=== PATIENT | male | born 1965 | race Caucasian/White ===

== ENCOUNTER 2016-06-05 13:55 | Outpatient (CLI) | payer BC | END 2016-06-05 14:13 | disposition home or self-care (01) | LOC: SLEEP 13:55 | PROVIDERS: ATTEND Nurse Practitioner Family | DX: G47.10 Hypersomnia, unspecified (principal); G47.50 Parasomnia, unspecified ==

== ENCOUNTER 2018-01-19 05:36 | Outpatient (CLI) | payer BC ==
[~2018-01-19] VITALS: Ht 190.5 cm; Wt 111.1 kg
[2018-01-19] MEDS ORDERED: ALLO300T2 PO (12:36)
[2018-01-19] MEDS ORDERED: BENA1TAB15 PO (12:36)
[2018-01-19] MEDS ORDERED: ATOR40TA70 PO (12:36)
== END 2018-01-19 12:44 | disposition home or self-care (01) ==
LOC: PREOP 05:36
PROVIDERS: ATTEND Internal Medicine
DX: Z01.818 Encounter for other preprocedural examination (principal)

== ENCOUNTER 2018-01-23 06:53 | Day surgery (SDC) | payer BC ==
--- NOTE | 2017-12-31 16:42 | HISTORY AND PHYSICAL ---
DATE OF SERVICE: COLONOSCOPY HISTORY AND PHYSICAL HISTORY OF PRESENT ILLNESS: The patient is a 52-year-old white male who was seen in the office for followup of hypertension, obstructive sleep apnea and acute intermittent gout. Two months earlier, I had seen him for left lower quadrant abdominal pain and elevated white count, suspicious for diverticulitis. He finished a round of oral antibiotic therapy with resolution of abdominal pain and has noted no blood in his stool. He has no previous history of colonoscopy. He reports that he has been feeling well. Energy level has returned to normal. His weight was up 11 pounds over the past 2 months and he has been eating pretty much and there have been no dietary restrictions. He has had no gout flares and has been compliant with CPAP. There is no known family history for colon cancer. PHYSICAL EXAMINATION: GENERAL: Revealed a well-appearing white male in no acute distress. VITAL SIGNS: Blood pressure 128/84, weight 245.6 pounds, actually up 9.6 pounds from 2 months ago. HEENT: Sclerae nonicteric. Oral cavity reveals a Mallampati class 3 oropharyngeal configuration without evidence for exudate or erythema. CHEST: Clear to auscultation. CARDIOVASCULAR: Reveals regular rate and rhythm without murmur, S3 or S4. ABDOMEN: Soft, supple without mass, organomegaly or tenderness. EXTREMITIES: Reveal no cyanosis, clubbing or edema. ASSESSMENT AND PLAN: 1. The patient was set up for screening colonoscopy on 01/23/2018. Prep instructions were given and Suprep kit and questions were answered. 2. Flu shot administered today. 3. Acute intermittent gout. Stable on uric acid lowering therapy in the form of the allopurinol. 4. Hypertension, in good control. We will see him back in 4 months. Job ID: [id number] DocumentID: [id number] Dictated Date: 12/24/2017 16:26:17 Milk Bottler Date: 12/24/2017 17:25:37 Dictated By: JONI GARCIA MD
[~2018-01-23] VITALS: Ht 190.5 cm; Wt 111.1 kg
[~2018-01-23 06:53] MED LIST: ALLO300T2 PO; ATOR40TA70 PO; BENA1TAB15 PO
[2018-01-23] MEDS ORDERED: D5 LR IV SOLUTION 1,000 ML IV ONE (07:21)
[2018-01-23 07:34] VITALS: BP 132/88
[2018-01-23] MEDS ORDERED: D5 LR IV SOLUTION 1,000 ML IV STA (07:37)
[2018-01-23] MEDS ORDERED: LIDOCAINE JELLY 2% 6 ML SYRINGE MM PRN (07:45)
[2018-01-23] MEDS ORDERED: fentaNYL INJECTION 100 MCG/2 ML AMP IVP ONE (07:45)
[2018-01-23] MEDS ORDERED: MIDAZOLAM 2 MG/2 ML (VERSED) VIAL IVP ONE (07:45)
[2018-01-23] MEDS ORDERED: MIDAZOLAM 2 MG/2 ML (VERSED) VIAL ONE ×2 (07:58)
[2018-01-23] MEDS ORDERED: LIDOCAINE JELLY 2% 6 ML SYRINGE ONE (07:58)
[2018-01-23] MEDS ORDERED: fentaNYL INJECTION 100 MCG/2 ML AMP ONE (07:58)
--- NOTE | 2018-01-23 07:59 | Pre-Op Note & Conscious Sedat ---
Pre-Operative Progress Note H&P Reviewed The H&P was reviewed, patient examined and no changes noted. Date H&P Reviewed: Jan 23, 2018 Time H&P Reviewed: 07:50 Conscious Sedation Pre-Proced ASA Score 2 For ASA 3 and 4: Consider anesthesia and medical clearance. Also, for patients with a history of failed moderate sedation consider anesthesia. Airway Lungs Heart ASA score ASA 1: a normal healthy patient ASA 2: a patient with a mild systemic disease (mid diabetes, controlled hypertension, obesity ASA 3: a patient with a severe systemic disease that limits activity (angina , COPD, prior Myocardial infarction) ASA 4: a patient with an incapacitating disease that is a constant threat to life (CHF, renal failure) ASA 5: a moribund patient not expected to survive 24 hrs. (ruptured aneurysm) ASA 6: a declared brain patient whose organs are being harvested. For emergent operations, add the letter E after the classification Mallampati Classification Grade 3 Sedation Plan Analgesia, Amnesia, Plan communicated to team members, Discussed options with patient/fam, Discussed risks with patient/fam The patient is an appropriate candidate to undergo the planned procedure, sedation, and anesthesia. The patient immediately re-assessed prior to indication. JONI GARCIA MD Jan 23, 2018 07:58
[2018-01-23 08:35] VITALS: BP 180/106
[2018-01-23 09:05] VITALS: BP 173/103
[2018-01-23 09:19] VITALS: BP 173/103
--- NOTE | 2018-01-23 18:40 | OPERATIVE REPORT ---
DATE OF SERVICE: 01/23/2018 COLONOSCOPY SUMMARY INDICATION FOR THE PROCEDURE: Screening. DATE OF PROCEDURE: The patient was placed in left lateral decubitus position. Prior to doing colonoscopy, digital rectal evaluation was performed. Anal sphincter tone was normal. The perianal reflexes were intact. Prostate is anodular, nontender and unremarkable to digital inspection. No abnormalities were noted in the inspection of the anal canal or distal rectal vault. The colonoscope was then inserted into the rectum and under direct visualization, advanced to the cecum. The cecum was identified by identification of the ileocecal valve and cecal strap. Photographic documentation was obtained. Careful inspection was made as the colonoscope was withdrawn. The patient tolerated the procedure well. FINDINGS: There was no evidence for internal or external hemorrhoids. Present at the rectosigmoid junction was a diminutive hyperplastic appearing polyp, it was biopsied, ablated and submitted for histopathology. No other rectal abnormalities were appreciated. Several small sigmoid diverticulum were present without evidence of diverticulitis. No other sigmoid colonic abnormalities were appreciated. The descending colon, splenic flexure, transverse colon, hepatic flexure, ascending colon and cecum were unremarkable. ASSESSMENT: 1. Mild diverticular disease confined to the sigmoid colon was present. 2. One diminutive hyperplastic appearing polyp was biopsied, ablated, located at the rectosigmoid junction. Prostate was unremarkable on digital inspection. The patient has no known family history for colon cancer, will be abdicating consideration for repeat screening colonoscopy in 10 years. Job ID: [id number] DocumentID: [id number] Dictated Date: 01/23/2018 12:11:00 Marbleizing Machine Tender Date: 01/23/2018 18:40:01 Dictated By: JONI GARCIA MD
== END 2018-01-23 09:19 | disposition home or self-care (01) ==
LOC: ENDO 06:53
PROVIDERS: ATTEND Internal Medicine
DX: Z12.11 Encounter for screening for malignant neoplasm of colon (principal); K63.5 Polyp of colon; K57.30 Diverticulosis of large intestine without perforation or abscess without bleeding; I10 Essential (primary) hypertension; G47.33 Obstructive sleep apnea (adult) (pediatric); Z79.899 Other long term (current) drug therapy

== ENCOUNTER 2020-08-30 22:37 | Emergency (ER) | payer BC ==
[~2020-08-30] VITALS: Ht 190.5 cm; Wt 111.3 kg
[2020-08-30] MEDS ORDERED: FAMOTIDINE 20MG/2ML IV (PEPCID) ONE (22:50)
[2020-08-30] MEDS ORDERED: EPINEPHrine INJECTION 1 MG/ML AMP ONE (22:50)
[2020-08-30] MEDS ORDERED: methylPREDNISolone 125 MG (Solu-MEDROL) VIAL ONE (22:50)
[2020-08-30] MEDS ORDERED: diphenhydrAMINE 50 MG/ML INJ (BENADRYL) ONE (22:50)
[2020-08-30] MEDS ORDERED: FAMOTIDINE 20MG/2ML IV (PEPCID) IVP ONE (23:00)
[2020-08-30] MEDS ORDERED: diphenhydrAMINE 50 MG/ML INJ (BENADRYL) IVP ONE (23:00)
[2020-08-30] MEDS ORDERED: methylPREDNISolone 125 MG (Solu-MEDROL) VIAL IVP ONE (23:00)
[2020-08-30] MEDS ORDERED: EPINEPHrine INJECTION 1 MG/ML AMP IM ONE (23:00)
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
[2020-08-31] MEDS ORDERED: FAMO40TA72 PO (00:43)
[2020-08-31] MEDS ORDERED: PRD20T PO (00:43)
[2020-08-31 00:48] VITALS: BP 133/79
== END 2020-08-31 00:48 | disposition home or self-care (01) ==
LOC: EDUNIT# 22:37 → ER 22:40
DX: T63.441A Toxic effect of venom of bees, accidental (unintentional), initial encounter (principal); I10 Essential (primary) hypertension; M10.9 Gout, unspecified; Z79.899 Other long term (current) drug therapy
CPT/HCPCS: 93041